=== PATIENT | male | born 1970 | race Caucasian/White ===

== ENCOUNTER 2018-02-25 19:58 | Emergency (ER) | payer OTHER ==
[~2018-02-25] VITALS: Ht 597.6 cm; Wt 66.5 kg
[2018-02-25 20:24] VITALS: BP 176/103
[2018-02-25] MEDS ORDERED: gentamicin 0.3% ophthalmic drops 5ML RIGHTEYE STA (22:12)
[2018-02-25] MEDS ORDERED: GENOO RIGHTEYE (22:17)
[2018-02-25] MEDS ORDERED: CLIN150C2 PO (22:17)
== END 2018-02-25 22:38 | disposition home or self-care (01) ==
LOC: ER 19:58
DX: S05.01XA Injury of conjunctiva and corneal abrasion without foreign body, right eye, initial encounter (principal); I10 Essential (primary) hypertension; K21.9 Gastro-esophageal reflux disease without esophagitis; Z98.890 Other specified postprocedural states; Z79.2 Long term (current) use of antibiotics; X58.XXXA Exposure to other specified factors, initial encounter; Y93.89 Activity, other specified; Y92.89 Other specified places as the place of occurrence of the external cause; Y99.8 Other external cause status
CPT/HCPCS: 99283; J7030

== ENCOUNTER 2018-02-27 02:53 | Emergency (ER) | payer OTHER ==
[~2018-02-27] VITALS: Ht 175.3 cm; Wt 67.6 kg
[~2018-02-27 02:53] MED LIST: CLIN150C2 PO; GENOO RIGHTEYE
[2018-02-27 03:23] VITALS: BP 187/114
== END 2018-02-27 03:26 | disposition home or self-care (01) ==
LOC: ER 02:54
DX: S05.01XA Injury of conjunctiva and corneal abrasion without foreign body, right eye, initial encounter (principal); I10 Essential (primary) hypertension; K21.9 Gastro-esophageal reflux disease without esophagitis; Z86.73 Personal history of transient ischemic attack (TIA), and cerebral infarction without residual deficits; X58.XXXA Exposure to other specified factors, initial encounter; Y93.89 Activity, other specified; Y92.89 Other specified places as the place of occurrence of the external cause; Y99.8 Other external cause status
CPT/HCPCS: 99281